=== PATIENT | female | born 1985 | race Caucasian/White ===

== ENCOUNTER 2021-11-11 08:54 | Emergency (ER) | payer OTHER ==
[~2021-11-11] VITALS: Ht 12.7 cm; Wt 1.8 kg
[~2021-11-11 08:54] MED LIST: PREN-385 PO
[2021-11-11 08:59] VITALS: BP 147/86
--- NOTE | 2021-11-11 09:06 | NUR ---
PT AMB TO BED 6.
[2021-11-11] MEDS ORDERED: ONDANSETRON 4 MG/2 ML VIAL IVP ONE (09:15)
[2021-11-11] MEDS ORDERED: KETOROLAC 30 MG/ML VIAL IVP ONE (09:15)
[2021-11-11] MEDS ORDERED: NACL 0.9% 1,000 ML IV SCH (09:15)
--- NOTE | 2021-11-11 09:15 | NUR ---
Patient being evaluated by DR GILL at bedside.
--- NOTE | 2021-11-11 09:56 | NUR ---
36 yo f c/o right flank and right upper quadrant pain for 1 week with associated nausea, vomiting, loss of appetite. took advil with no relief. denies fever/chills, chest pain, shortness with, cough, flu symptoms, loss of taste or smell, diarrhea, urinary symptoms. in ed, vss. no active vomiting at this time. with ruq tenderness on palpation. pt positioned comfortably in bed with 2 siderails up. ermd made aware of pt status. pmh: nephrolithiasis nka
[2021-11-11 11:03] LABS: ALBUMIN 3.6 g/dL (3.4-5.0); ANION GAP 13.1 (8-16); CARBON DIOXIDE 26.8 mmol/L (21-32); CREATININE 0.8 mg/dL (0.6-1.3); POTASSIUM 3.9 mmol/L (3.5-5.1); TOTAL BILIRUBIN 0.9 mg/dL (0.0-1.0)
[2021-11-11 11:17] LABS: BASOPHILS % (AUTO) 0.5 % (0.0-2.0); EOSINOPHILS # (AUTO) 0.2 K/uL (0-0.4); EOSINOPHILS % (AUTO) 2.7 % (0.0-4.0); HEMATOCRIT 40.3 % (36-48); HEMOGLOBIN 13.6 g/dL (12.0-16.0); LYMPHOCYTES # (AUTO) 1.7 K/uL (2.5-16.5); LYMPHOCYTES % (AUTO) 27.7 % (20.5-51.1); MEAN CORPUSCULAR HEMOGLOBIN 29 pg (27-31); MEAN CORPUSCULAR HGB CONC 34 g/dL (33-37); MEAN CORPUSCULAR VOLUME 87.2 fL (80-94); MONOCYTES # (AUTO) 0.5 K/uL (0.8-1.0); MONOCYTES % (AUTO) 7.1 % (1.7-9.3); NEUTROPHILS # (AUTO) 3.9 K/uL (1.8-7.7); PLATELET COUNT (AUTO) 315 K/uL (140-450); RED BLOOD CELL COUNT(AUTO) 4.63 MIL/uL (4.20-5.40); RED CELL DISTRIBUTION WIDTH 13.7 % (11.6-13.7); WHITE BLOOD COUNT (AUTO) 6.3 K/uL (4.8-10.8)
[2021-11-11] MEDS ORDERED: FAMO-92 PO (13:45)
[2021-11-11] MEDS ORDERED: SULF-58 PO (13:45)
[2021-11-11] MEDS ORDERED: ONDA-188 PO (13:45)
[2021-11-11 14:05] VITALS: BP 147/86
--- NOTE | 2021-11-11 14:06 | NUR ---
Patient discharged with v/s stable. Written and verbal after care instructions given and explained. Patient alert, oriented and verbalized understanding of instructions. Ambulatory with steady gait. All questions addressed prior to discharge. ID band removed. Patient advised to follow up with PMD. Rx of famotidine, ondansetron, bactrim given. Patient educated on indication of medication including possible reaction and side effects. Opportunity to ask questions provided and answered.
[2021-11-11 14:13] LABS: APPEARANCE,URINE HAZY (CLEAR); BILIRUBIN,URINE 1+ (NEGATIVE); BLOOD, URINE TRACE-I (NEGATIVE); COLOR,URINE YELLOW (YELLOW); LEUKOCYTE ESTERASE ,URINE 1+ (NEGATIVE); NITRITE, URINE NEGATIVE (NEGATIVE); UGLUCOSE NEGATIVE (NEGATIVE)
[2021-11-11 14:59] LABS: RBC,URINE 0-5 /HPF (0-5)
[2021-11-11 15:00] LABS: TRICHOMONAS,URINE None Seen /HPF (None Seen); YEAST,URINE None Seen /HPF (None Seen)
== END 2021-11-11 14:06 | disposition home or self-care (01) ==
LOC: MED 08:54
DX: R10.11 Right upper quadrant pain (principal); R11.2 Nausea with vomiting, unspecified; R74.01 Elevation of levels of liver transaminase levels
CPT/HCPCS: 36415; 76705; 80053; 81001; 81025; 83690; 85025; 87086; 96361; 96374; 96375; 99284; J1885; J2405; J7030; Q0092

== ENCOUNTER 2022-07-30 16:38 | Emergency (ER) | payer OTHER ==
[~2022-07-30] VITALS: Ht 154.9 cm; Wt 94.3 kg
[~2022-07-30 16:38] MED LIST changes: +FAMO-92 PO; +ONDA-188 PO; +SULF-58 PO
[2022-07-30 16:42] VITALS: BP 125/72
--- NOTE | 2022-07-30 16:52 | NUR ---
SEEN BY FRANCHESCA WINKLER
[2022-07-30] MEDS ORDERED: ONDANSETRON 4 MG ODT PO ONE (16:55)
[2022-07-30] MEDS ORDERED: KETOROLAC 15 MG/ML VIAL IM ONE (16:55)
--- NOTE | 2022-07-30 16:55 | NUR ---
AMBULATED TO BED 11
--- NOTE | 2022-07-30 17:04 | NUR ---
37/F WALKED IN REQUESTING MED REFILL OF ZOFRAN ODT AND SULFA AND FAMOTIDINE D/T CHOLELITHIASIS DX. C/O RUQ PAIN. AFEBRILE. VSS. URINE COLLECTED. BLOODDRAWN. NKA PMH:HX CHOLELITHIASIS
[2022-07-30 17:05] VITALS: BP 130/68
[2022-07-30 17:07] LABS: BASOPHILS # (AUTO) 0.1 K/uL (0.00-0.22); BASOPHILS % (AUTO) 0.8 % (0.0-2.0); EOSINOPHILS # (AUTO) 0.2 K/uL (0-0.4); HEMATOCRIT 37.7 % (36-48); HEMOGLOBIN 12.9 g/dL (12.0-16.0); LYMPHOCYTES # (AUTO) 2.7 K/uL (2.5-16.5); LYMPHOCYTES % (AUTO) 31.2 % (20.5-51.1); MEAN CORPUSCULAR HEMOGLOBIN 30 pg (27-31); MEAN CORPUSCULAR HGB CONC 34 g/dL (33-37); MEAN CORPUSCULAR VOLUME 87.2 fL (80-94); MONOCYTES # (AUTO) 0.6 K/uL (0.8-1.0); MONOCYTES % (AUTO) 6.6 % (1.7-9.3); NEUTROPHILS # (AUTO) 5.1 K/uL (1.8-7.7); NEUTROPHILS % (AUTO) 59.4 % (42.2-75.2); PLATELET COUNT (AUTO) 297 K/uL (140-450); RED BLOOD CELL COUNT(AUTO) 4.32 MIL/uL (4.20-5.40); RED CELL DISTRIBUTION WIDTH 13.7 % (11.6-13.7); WHITE BLOOD COUNT (AUTO) 8.5 K/uL (4.8-10.8)
[2022-07-30 17:22] LABS: ALBUMIN 3.5 g/dL (3.4-5.0); ANION GAP 11.4 (8-16); CREATININE 0.8 mg/dL (0.6-1.3); POTASSIUM 3.4 mmol/L (3.5-5.1); TOTAL BILIRUBIN 0.5 mg/dL (0.0-1.0)
[2022-07-30] MEDS ORDERED: ONDA-188 PO (17:27)
--- NOTE | 2022-07-30 17:30 | NUR ---
Patient discharged with v/s stable. Written and verbal after care instructions given and explained. Patient verbalized understanding. Ambulatory with steady gait. All questions addressed prior to discharge. Advised to follow up with PMD.
== END 2022-07-30 17:30 | disposition home or self-care (01) ==
LOC: MED 16:38
DX: R10.11 Right upper quadrant pain (principal); R11.2 Nausea with vomiting, unspecified; Z79.899 Other long term (current) drug therapy
CPT/HCPCS: 36415; 80053; 81002; 81025; 83690; 85025; 96372; 99283; J1885; Q0162